=== PATIENT | female | born 2000 | race Caucasian/White ===

== ENCOUNTER 2018-02-16 22:08 | Emergency (ER) | payer SELFPAY ==
[~2018-02-16] VITALS: Ht 152.4 cm; Wt 65.8 kg
[2018-02-17 00:07] LABS: INFLUENZAE A&B ANTIGEN (RAPID) NEGATIVE (NEGATIVE); STREPTOCOCCUS GRP A ANTIGEN NEGATIVE (NEGATIVE)
--- NOTE | 2018-02-17 00:21 | Diagnostic Imaging Report ---
EXAMINATION: CHEST SINGLE (NOT PORTABLE) INDICATION: Cough COMPARISON: None FINDINGS: AP view TUBES and LINES: None. LUNGS: Lungs are well inflated. Lungs are clear. There is no evidence of pneumonia or pulmonary edema. PLEURA: No pleural effusion or pneumothorax. HEART AND MEDIASTINUM: The cardiomediastinal silhouette is unremarkable. BONES AND SOFT TISSUES: No acute osseous lesion. Soft tissues are unremarkable. UPPER ABDOMEN: No free air under the diaphragm. IMPRESSION: No acute thoracic abnormality. Signed by: DR. Domingo Miller MD on 02/17/2018 12:18 AM
[2018-02-17 01:26] VITALS: BP 102/78
== END 2018-02-17 01:32 | disposition home or self-care (01) ==
LOC: ER 22:08
DX: R05 Cough (principal); J30.1 Allergic rhinitis due to pollen
CPT/HCPCS: 71045; 83518; 87070; 87400; 99283

== ENCOUNTER → 2018-07-01 | Emergency (ER) | payer SELFPAY ==
[~2018-07-01] VITALS: Ht 152.4 cm; Wt 65.8 kg
--- OUTSIDE RECORDS SUMMARY | 2018-07-01 22:16 | XMS REPORT ---
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 Allergies, Adverse Reactions, Alerts This patient has no known allergies or adverse reactions. Medications This patient has no known medications. Results Test Description Test Time Test Comments Text Results Atomic Results Result Comments CHEST SINGLE (NOT PORTABLE) 2018-02-17 00:17:00 [facility] [address] [address] Patient Name: BRIT FRANCE MR #: [id number] : 2000 Age/Sex: 17/F Req #: [id number] Adm Physician: Ordered by: KASIA MADSEN MD Report #: [id number] Location: ER Room/Bed: Procedure: [id number] DX/CHEST SINGLE (NOT PORTABLE) Exam Date: 02/16/18 Exam Time: 2330 REPORT STATUS: Signed EXAMINATION: CHEST SINGLE (NOT PORTABLE) INDICATION: Cough COMPARISON: None FINDINGS: AP view TUBES and LINES: None. LUNGS: Lungs are well inflated. Lungs are clear. There is no evidence of pneumonia or pulmonary edema. PLEURA: No pleural effusion or pneumothorax. HEART AND MEDIASTINUM: The cardiomediastinal silhouette is unremarkable. BONES AND SOFT TISSUES: No acute osseous lesion. Soft tissues are unremarkable. UPPER ABDOMEN: No free air under the diaphragm. IMPRESSION: No acute thoracic abnormality. Signed by: DR. Domingo Miller MD on 02/17/2018 12:18 AM Dictated By: DOMINGO MILLER MD Transcribed By: SHY on 02/17/1817 COPY TO: KASIA MADSEN MD
== END | disposition left against medical advice (07) ==
LOC: ER 22:14
DX: R19.7 Diarrhea, unspecified (principal)